=== PATIENT | female | born 1995 ===

== ENCOUNTER → 2018-07-13 19:56 | Outpatient (REF) | payer OTHER, SELFPAY ==
[2018-07-16 16:53] LABS: Mitogen-NIL 8.09 IU/mL; NIL 0.02 IU/mL; QuantiFERON TB NEGATIVE (Negative); TB1-NIL < 0.01 IU/mL; TB2-NIL < 0.01 IU/mL
== END ==
LOC: LAB 19:56
PROVIDERS: Visit Provider Family Medicine
DX: Z11.1 Encounter for screening for respiratory tuberculosis (principal)
CPT/HCPCS: 36415; 86480